=== PATIENT | male | born 1975 | race Caucasian/White ===

== ENCOUNTER → 2023-02-05 12:08 | Outpatient (BNVA) | payer MEDICAID, SELFPAY | PROVIDERS: Visit Provider Nurse Practitioner Family | DX: E11.9 Type 2 diabetes mellitus without complications (principal); Z12.5 Encounter for screening for malignant neoplasm of prostate | CPT/HCPCS: 80053; 80061; 83036; 84443; G0103 ==

== ENCOUNTER → 2023-02-19 15:34 | Outpatient (BNVA) | payer MEDICAID, SELFPAY | PROVIDERS: PCP Nurse Practitioner Family; Visit Provider Nurse Practitioner Family | DX: J06.9 Acute upper respiratory infection, unspecified (principal); J32.9 Chronic sinusitis, unspecified | CPT/HCPCS: 87426 ==

== ENCOUNTER → 2023-03-01 12:00 | Outpatient (BNVA) | payer BC, SELFPAY | PROVIDERS: PCP Nurse Practitioner Family; Visit Provider Nurse Practitioner Family | DX: R19.8 Other specified symptoms and signs involving the digestive system and abdomen (principal) | CPT/HCPCS: 87070; 87075; 87205 ==

== ENCOUNTER → 2023-03-15 10:22 | Outpatient (BNVA) | payer BC, MEDICAID, SELFPAY | PROVIDERS: PCP Nurse Practitioner Family; Visit Provider Podiatrist Foot & Ankle Surgery | DX: E11.42 Type 2 diabetes mellitus with diabetic polyneuropathy; M72.2 Plantar fascial fibromatosis; B35.1 Tinea unguium; Z79.84 Long term (current) use of oral hypoglycemic drugs | CPT/HCPCS: 36415; 73630; 80053 ==

== ENCOUNTER → 2023-09-13 11:08 | Outpatient (BNVA) | payer OTHER, SELFPAY | PROVIDERS: PCP Nurse Practitioner Family; Visit Provider Nurse Practitioner Family | DX: E11.9 Type 2 diabetes mellitus without complications | CPT/HCPCS: 80053; 80061; 81000; 82043; 82607; 83036; 84443; 85025 ==

== ENCOUNTER 2024-06-04 11:07 | Emergency (ER) | payer SELFPAY ==
--- NOTE | 2024-06-04 11:11 | ECG_ITS ---
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 Measurements Intervals [place] Rate: 74 P: 23 AL: 171 QRS: 75 QRSD: 94 T: 3 QT: 379 QTc: 422 Interpretive Statements SINUS RHYTHM No previous ECG available for comparison Electronically Signed On 06-04-2024 17:24:35 [employer] by Saman Gruber M.D. [id number]
--- NOTE | 2024-06-04 11:11 | XR_ITS ---
WS: [id number] Portable AP upright chest, 06/04/2024 Clinical Data: cp Comparison: None. Findings: No nodules, masses or effusions are seen. The heart is normal. The pulmonary vascularity is not increased. No pneumonia or pneumothorax is seen. There are old right third through seventh rib f ractures. Monitor leads are on the chest wall. XR/XR chest 1V portable [id number] Impression: Negative chest.
[2024-06-04 11:15] VITALS: BP 177/108; PULSE 80; RESP 18; TEMP 36.7; O2SAT 99; BMI 37.1
--- NOTE | 2024-06-04 11:37 | ED_ITS ---
HPI - General Adult 2 General: Chief complaint: General Medical Stated complaint: BP, high chest pain Time Seen by Provider: 06/04/24 11:11 Source: patient Mode of arrival: ambulatory Limitations: no limitations History of Present Illness: 48-year-old male who states that he has been out of his blood pressure meds states that he just moved here from [place] a few months ago and has not had a PCP yet and has been out of some of his meds states that his blood pressures been increasing and has had some mild headaches not feeling well. He states he is also had some chest pain states its right sided though and worse with touch she denies any pain at rest. Associated symptoms: Reports chest pain and headache(s); Deny dyspnea, nausea, rash or vomiting Related Data Home Medications Medication Instructions Recorded Confirmed bupropion HCl 150 mg 24 hr tablet, 150 mg PO QAM 06/04/24 06/04/24 extended release diclofenac sodium 75 mg 75 mg PO BID PRN Pain 06/04/24 06/04/24 tablet,delayed release omeprazole 20 mg capsule,delayed 20 mg PO DAILY 06/04/24 06/04/24 release trazodone 100 mg tablet 100 mg PO BEDTIME PRN Insomnia 06/04/24 06/04/24 triamcinolone acetonide 0.1 % 1 applic topical BID PRN Skin 06/04/24 06/04/24 topical cream Irritation zolpidem 10 mg tablet (Ambien) 10 mg PO BEDTIME PRN Sleep 06/04/24 06/04/24 Previous Rx's Medication Instructions Recorded Custom low profile insoles #1 ea 03/15/23 cetirizine 10 mg tablet (Zyrtec) 10 mg PO DAILY #90 tabs 03/23/23 amlodipine 10 mg tablet 10 mg PO DAILY #30 tabs 06/04/24 carvedilol 25 mg tablet 25 mg PO BID #60 tabs 06/04/24 clonidine HCl 0.1 mg tablet 0.1 mg PO DAILY PRN Blood Pressure 06/04/24 #30 tabs dapagliflozin propanediol 10 mg 10 mg PO DAILY #30 tabs 06/04/24 tablet (Farxiga) gabapentin 400 mg capsule 400 mg PO TID #90 caps 06/04/24 hydralazine 25 mg tablet 25 mg PO TID #90 tabs 06/04/24 hydrochlorothiazide 25 mg tablet 25 mg PO DAILY #30 tabs 06/04/24 losartan 100 mg tablet 100 mg PO DAILY #30 tabs 06/04/24 metformin 1,000 mg tablet 1,000 mg PO BID #60 tabs 06/04/24 Allergies Allergy/AdvReac Type Severity Reaction Status Date / Time Penicillins Allergy Intermediate GENERALIZED Verified 09/13/23 09:16 SWELLING shellfish derived Allergy Intermediate SWELLING Verified 09/13/23 09:16 latex Allergy Mild RASH Verified 09/13/23 09:16 lisinopril AdvReac Mild COUGH Verified 09/13/23 09:16 CONTRAST DYE Allergy Severe A-FIB Uncoded 09/13/23 09:16 Review of Systems 2 Const: Denies: fever(s), chills, body aches or change in appetite ENMT: Denies: throat pain or dental pain Card: Reports: chest pain Resp: Denies: dyspnea GI: Denies: abdominal pain, nausea, vomiting or diarrhea Musc: Denies: neck pain or back pain Skin/Breast: Denies: rash Neuro: Reports: headache(s) PFSH ED 2 PFSH: Medical History Chronic low back pain Insomnia Hypertension Bipolar 1 disorder Hyperlipidemia Type 2 diabetes mellitus Surgical History History of shoulder surgery H/O sinus surgery Social History Smoking and tobacco/nicotine status: never used tobacco/nicotine Second hand smoke exposure: Yes Alcohol intake: former Former alcohol use details: QUIT 12/24/22 Substance/Drug Use: current Substance/Drug use frequency: daily Other substance/drug use details: ERIC Household members: spouse Marital status: service: No Current occupational status: employed Current gender identity: Male Special shobha needs: No Physical Exam 2 Const: COMMON NORMALS: no acute distress, patient oriented x3 and healthy appearing HENMT: COMMON NORMALS: normocephalic and atraumatic HEAD & SCALP: n ormocephalic and atraumatic Eye: COMMON NORMALS: Equal, round and reactive pupils present and EOMs intact bilaterally PUPIL: Yes Equal, round and reactive pupils present Neck/C-Spine: COMMON NORMALS: full ROM and supple Chest: COMMONS NORMALS: normal inspection of the chest and normal palpation of entire chest wall Resp: COMMON NORMALS: normal respiratory effort, No retractions, No use of accessory muscles and clear to auscultation bilaterally AUSCULTATION: clear to auscultation bilaterally Cardio: COMMON NORMALS: regular rate, regular rhythm and No murmurs present (Cardio) RATE: regular rate RHYTHM: regular rhythm GI: COMMON NORMALS: Normal to inspection, nondistended, normoactive bowel sounds present, Soft to palpation, non-tender and no masses PALPATION: Yes Soft to palpation Extremity: COMMON NORMALS: normal to inspection and full ROM Neuro: COMMON NORMALS: patient oriented x3, moves all extremities and no focal motor deficits Psych: COMMON NORMALS: mental status grossly normal, Normal thought process present and cooperative THOUGHT PROCESS: Normal thought process present Skin: COMMON NORMALS: no rashes or lesions noted and no wounds GENERAL SKIN EXAM: no rashes or lesions noted Course 2 Vital Signs: Vital signs: Vital Signs Temperature 98.1 F 06/04/24 11:15 Pulse Rate 82 06/04/24 12:44 Respiratory Rate 18 06/04/24 11:15 Blood Pressure 174/106 06/04/24 12:44 Pulse Oximetry 92 06/04/24 12:44 Oxygen Delivery Me thod Room Air 06/04/24 11:15 MDM - General Adult Medical Decision Making Patient presents here with hypertension he has been out of his meds he had also had some chest pains atypical in nature he is tender on exam likely muscular is been going on for days initial troponin here is negative he has no signs of ACS does not require a second troponin. No signs of pulmonary embolism we will refill his blood pressure meds he is to follow-up with a PCP return if worsening. Medical Records I reviewed the patient's medical records. Lab Data I reviewed the patient's lab results. 06/04/24 11:36 06/04/24 13:00 Radiology Impressions Chest X-Ray 06/04/24 11:11 Impression: Negative chest. Laboratory Results WBC 8.04 10^3/uL (3.29-11.43) 06/04/24 11:36 RBC 5.39 10^6/uL (3.85-5.65) 06/04/24 11:36 Hgb 17.30 g/dL (11.27-16.99) H 06/04/24 11:36 Hct 47.5 % (37-53) 06/04/24 11:36 MCV 88.1 fl (82-101) 06/04/24 11:36 MCH 32.1 pg (27-33) 06/04/24 11:36 MCHC 36.4 g/dL (30-55) 06/04/24 11:36 RDW 11.6 % (12.1-15.1) L 06/04/24 11:36 Plt Count 269 10^3/cmm (157-399) 06/04/24 11:36 MPV 11.5 fL (7.4-10.4) H 06/04/24 11:36 Neut % (Auto) 62.3 % 06/04/24 11:36 Lymph % (Auto) 29.1 % 06/04/24 11:36 [place] % (Auto) 7.0 % 06/04/24 11:36 Eos % (Auto) 1.0 % 06/04/24 11:36 Baso % (Auto) 0.4 % 06/04/24 11:36 Neut # (Auto) 5.01 10^3/uL (1.8-7.7) 06/04/24 11:36 Lymph # (Auto) 2.3 10^3/uL (0.8-4.8) 06/04/24 11:36 [place] # (Auto) 0.6 10^3/uL (0.2-0.9) 06/04/24 11:36 Eos # (Auto) 0.1 10^3/uL (0.0-0.8) 06/04/24 11:36 Baso # (Auto) 0.0 10^3/uL (0.0-0.1) 06/04/24 11:36 Nucleated RBC % (auto) 0 % 06/04/24 11:36 Nucleated RBCs # 0.0 /100WBC 06/04/24 11:36 PT 12.90 SECONDS (12.1-14.9) 06/04/24 13:00 INR 0.91 (0.8-1.2) 06/04/24 13:00 Sodium 134 mmol/L (136-145) L 06/04/24 13:00 Potassium 4.0 mmol/L (3.5-5.1) 06/04/24 13:00 Chloride 98 mmol/L (98-107) 06/04/24 13:00 Carbon Dioxide 20 mmol/L (22-29) L 06/04/24 13:00 Anion Gap 20.0 (5-19) H 06/04/24 13:00 BUN 13 mg/dL (6-20) 06/04/24 13:00 Creatinine 1.0 mg/dL (0.7-1.2) 06/04/24 13:00 GFR Calculation 80.1 mL/min (90-130) L 06/04/24 13:00 Glucose 146 mg/dL (65-115) H 06/04/24 13:00 Calculated Osmolality 281 mOsm/kg (285-295) L 06/04/24 13:00 Calcium 9.9 mg/dL (8.5-10.5) 06/04/24 13:00 Total Bilirubin 0.6 mg/dL (0.15-1.2) 06/04/24 13:00 AST 16 U/L (0-40) 06/04/24 13:00 ALT 18 U/L (0-41) 06/04/24 13:00 Alkaline Phosphatase 117 U/L (40-130) 06/04/24 13:00 Troponin T Baseline 9 ng/L (0-15) 06/04/24 13:00 Total Protein 7.9 g/dL (6.6-8.7) 06/04/24 13:00 Albumin 4.5 g/dL (3.5-5.2) 06/04/24 13:00 Globulin 3.4 g/dL (1.3-4.6) 06/04/24 13:00 Lipase 44 U/L (13-60) 06/04/24 13:00 All radiology interpretation(s) finalized by discharge EKG Data EKG 1: I personally reviewed and interpreted this EKG as follows: EKG interpretation date: 06/04/24 EKG interpretation time: 11:18 Interpretation: nsr hr [address] elevation qrs 94 qtc 407 Computer generated interpretation: Chest X-Ray 06/04/24 11:11 Impression: Negative chest. Discharge Plan Discharge Patient Disposition: Home Clinical Impression: Atypical chest pain Hypertension Qualifiers: Hypertension type: unspecified Qualified Code(s): I10 - Essential (primary) hypertension Condition: Stable Prescriptions: Continued clonidine HCl 0.1 mg Tablet 0.1 mg PO DAILY PRN (Reason: Blood Pressure) Qty: 30 0RF gabapentin 400 mg capsule 400 mg PO TID Qty: 90 0RF hydralazine 25 mg Tablet 25 mg PO TID Qty: 90 0RF amlodipine 10 mg tablet 10 mg PO DAILY Qty: 30 0RF hydrochlorothiazide 25 mg tablet 25 mg PO DAILY Qty: 30 0RF losartan 100 mg tablet 100 mg PO DAILY Qty: 30 0RF Changed carvedilol 25 mg tablet 25 mg PO BID Qty: 60 0RF metformin 1,000 mg tablet 1,000 mg PO BID Qty: 60 0RF dapagliflozin propanediol [Farxiga] 10 mg tablet 10 mg PO DAILY Qty: 30 0RF No Action (DME) Custom low profile insoles See Rx Instructions .Route .MEDSUPPLY Qty: 1 0RF Rx Instructions: As directed by Nicole Silva cetirizine [Zyrtec] 10 mg tablet 10 mg PO DAILY Qty: 90 3RF diclofenac sodium 75 mg tablet,delayed release (DR/EC) 75 mg PO BID PRN (Reason: Pain) triamcinolone acetonide 0.1 % cream 1 applic topical BID PRN (Reason: Skin Irritation) trazodone 100 mg tablet 100 mg PO BEDTIME PRN (Reason: Insomnia) omeprazole 20 mg capsule,delayed release(DR/EC) 20 mg PO DAILY zolpidem [Ambien] 10 mg tablet 10 mg PO BEDTIME PRN (Reason: Sleep) bupropion HCl 150 mg tablet extended release 24 hr 150 mg PO QAM Discharge Orders: Discharge ED (Routine); Ordered 06/04/24 Ordered By: Tamica Schmidt Referrals: Marya Dowell FNP [Primary Care Provider] - Discharge Diet: Advance as tolerated Discharge Activity: Resume usual activity Patient Instructions: Hypertension (ED) Coding Level of Care 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
[2024-06-04 11:44] LABS: Basophils % 0.4 %; Eosinophils # 0.1 10^3/uL (0.0-0.8); Hematocrit 47.5 % (37-53); Lymphocytes # 2.3 10^3/uL (0.8-4.8); Lymphocytes % 29.1 %; Mean Corpuscular HGB Conc 36.4 g/dL (30-55); Mean Corpuscular Hemoglobin 32.1 pg (27-33); Mean Corpuscular Volume 88.1 fl (82-101); Mean Platelet Volume 11.5 fL (7.4-10.4); Monocytes # 0.6 10^3/uL (0.2-0.9); Neutrophils # 5.01 10^3/uL (1.8-7.7); Neutrophils % 62.3 %; Nucleated Red Blood Cells % 0 %; Platelet Count 269 10^3/cmm (157-399); Red Blood Count 5.39 10^6/uL (3.85-5.65); Red Cell Distribution Width 11.6 % (12.1-15.1); White Blood Count 8.04 10^3/uL (3.29-11.43)
[2024-06-04] MEDS: hyDRALAzine 20 mg/mL INJ 1 mL 10 MG IVP (11:56)
[2024-06-04 12:44] VITALS: BP 174/106; PULSE 82; O2SAT 92
--- NOTE | 2024-06-04 13:11 | ECG_ITS ---
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 Measurements Intervals [place] Rate: 75 P: 7 HI: 174 QRS: 124 QRSD: 94 T: -7 QT: 375 QTc: 420 Interpretive Statements SINUS RHYTHM POSSIBLE RIGHT VENTRICULAR HYPERTROPHY [SOME/ALL OF: PROMINENT R IN V1, LATE TRANSITION, RAD, MIKHAIL, SSS] ABNORMAL QRS-T ANGLE [QRS-T AXIS DIFFERENCE > 60] Compared to ECG 06/04/2024 11:18:39 No significant changes Electronically Signed On 06-04-2024 17:42:37 [employer]UBE [employer]ILDER by Saman Gruber M.D. [id number]
[2024-06-04 13:19] LABS: INR 0.91 (0.8-1.2)
[2024-06-04 13:23] LABS: Troponin(5th) Baseline 9 ng/L (0-15)
[2024-06-04 13:24] LABS: Alanine Aminotransferase 18 U/L (0-41); Albumin Level 4.5 g/dL (3.5-5.2); Alkaline Phosphatase 117 U/L (40-130); Aspartate Amino Transferase 16 U/L (0-40); Blood Urea Nitrogen 13 mg/dL (6-20); Calcium 9.9 mg/dL (8.5-10.5); Carbon Dioxide 20 mmol/L (22-29); Chloride 98 mmol/L (98-107); Creatinine Clr Calc Pharmacy 103.3468; Globulin 3.4 g/dL (1.3-4.6); Glomerular Filtration Rate 80.1 mL/min (90-130); Glucose 146 mg/dL (65-115); Lipase 44 U/L (13-60); Osmolality Calculated 281 mOsm/kg (285-295); Sodium 134 mmol/L (136-145); Total Bilirubin 0.6 mg/dL (0.15-1.2); Total Protein 7.9 g/dL (6.6-8.7)
--- NOTE | 2024-06-04 13:25 | PC.PHAR ---
Pt provided several rx bottles with few or no tablets left in them. Pt also verified the remaning medications we had on his rx list, here. Pt is mostly out of the majority of his maintenance medications but he has just now been employed long enough to have insurance coverage. Pt states he took a few of his meds this morning but there were so many empty bottles, he did not take very many. Pt would like to start back on Bupropion hci 150mg qam and Gabapentin 400mg tid.
[2024-06-04] MEDS: HYDROcodone-acetaminophen 5-325 mg Tablet 1 TAB PO (13:52)
[2024-06-04 13:53] VITALS: BP 145/105; PULSE 78; O2SAT 98
--- NOTE | 2024-06-05 07:24 | DCPLANNER ---
messaged [facility] for er f/u
== END 2024-06-04 13:57 | disposition home or self-care (01) ==
PROVIDERS: Emergency Provider Emergency Medicine; PCP Nurse Practitioner Family
DX: R07.89 Other chest pain (principal); I10 Essential (primary) hypertension; E11.9 Type 2 diabetes mellitus without complications; E78.5 Hyperlipidemia, unspecified
CPT/HCPCS: 36415; 71045; 80053; 83690; 84484; 85025; 85610; 93005; 96374; 99285; J0360

== ENCOUNTER 2024-08-18 14:57 | Outpatient (CLI) | payer OTHER, SELFPAY | END 2024-08-18 14:58 | disposition home or self-care (01) | LOC: SLEEP 14:58 | PROVIDERS: PCP Nurse Practitioner Family; Visit Provider Family Medicine | DX: G47.33 Obstructive sleep apnea (adult) (pediatric) (principal) | CPT/HCPCS: G0399 ==